=== PATIENT | male | born 1985 | race Caucasian/White ===

== ENCOUNTER 2019-12-26 | Day surgery (SDC) | payer BC ==
[~2019-12-26] MED LIST: ALLEGRA30 MG; ALLEGRA60 MG PO; AMOXICILLIN/CL875 MG OR; AMOXICILLIN500 MG PO; AMOXICILLIN875 MG OR; BACTRIM DS1 TAB OR; BOOSTRIX IM; BREO ELLIPTA 101 INH; CIPRODEX1 ML AS; CORTISPORIN OTI10 M1 OT; DOXYCYCL HYC100 MG PO; FLONASE NASAL50 MCG; LORTAB 5 OR; NO HOME MEDS PER PT; ROCEPHIN 2250 MG/VIA IM; SEPTRA DS1 TAB OR; ZITHROMAX500 MG PO; [UNRECOGNIZED DRUG - REMARK]
[2019-12-26] MEDS ORDERED: [UNRECOGNIZED DRUG - REMARK] (12:48)
[2019-12-26] MEDS ORDERED: BREO ELLIPTA1 INH IN (12:48)
[2019-12-26] MEDS ORDERED: OMEPRAZOLE DR20 MG PO (14:33)
== END 2019-12-26 14:50 | disposition home or self-care (01) | DRG 393 ==
PROC: 0DC38ZZ Extirpation of Matter from Lower Esophagus, Via Natural or Artificial Opening Endoscopic (ICD-10-PCS; principal; 2019-12-26)
DX: T18.128A Food in esophagus causing other injury, initial encounter (principal); S27.813A Laceration of esophagus (thoracic part), initial encounter; X58.XXXA Exposure to other specified factors, initial encounter
CPT/HCPCS: J1610